=== PATIENT | male | born 1965 | race American Indian/Alaskan Native ===

== ENCOUNTER 2016-10-23 08:13 | Inpatient (IN) | payer OTHER ==
--- NOTE | 2016-10-23 09:07 | XRay Report ---
ROUTINE CHEST, TWO VIEWS: HISTORY: Shortness of breath. The trachea, heart, mediastinal contour, lung rose and bony thorax are unremarkable. IMPRESSION: Unremarkable chest x-ray.
[2016-10-23 09:09] LABS: BUN/Creatinine Ratio 11.25; Blood Urea Nitrogen 9 mg/dL (9-20); Calcium 7.6 mg/dL (8.4-10.2); Carbon Dioxide 14 mmol/L (22-30); Glucose 146 mg/dL (75-100)
[2016-10-23 09:10] LABS: Chloride 87.5 mmol/L (98-107); Sodium 124 mmol/L (137-145)
[2016-10-23 09:16] LABS: Hematocrit 33.3 % (35.5-45.6); Hemoglobin 11.8 gm/dl (11.8-15.2); Mean Corpuscular HGB Conc 35 % (32-34); Mean Corpuscular Hemoglobin 32 pg (28-32); Mean Corpuscular Volume 91 fl (84-94); Platelet Count 156 K/mm3 (140-440); Red Blood Count 3.66 M/mm3 (3.65-5.03); Red Cell Distribution Width 19.1 % (13.2-15.2); White Blood Count 10.6 K/mm3 (4.5-11.0)
[2016-10-23 09:32] LABS: Albumin 2.6 g/dL (3.9-5); Albumin/Globulin Ratio 0.7 %; Bilirubin,Indirect 2.7 mg/dL; Bilirubin,Total 7.7 mg/dL (0.1-1.2); Total Protein 6.2 g/dL (6.3-8.2)
[2016-10-23] MEDS ORDERED: VALIUM IV ONE (09:34)
--- NOTE | 2016-10-23 09:36 | Emergency Department Report ---
ED General Adult HPI - General Chief complaint: Chest Pain Stated complaint: CHEST PAIN/SOB/NOSE BLEEDS/RECTAL BLEEDING Time Seen by Provider: 10/23/16 09:18 Source: patient, RN notes reviewed Mode of arrival: Ambulatory Limitations: No Limitations - History of Present Illness Initial comments: This is a 51-year-old male. He is previously unknown to me. He presents to the ER with a complaint of general weakness, chest pain, shortness of breath, feeling tremulous and shaky, resolved nasal bleeding, brown stool mixed with bright red blood. Admits to a few episodes of nausea and vomiting. The patient used to consume multiple beers a day. He reports recently trying to discontinue alcohol consumption. He is not homicidal. He is not suicidal. The chest pain as central, and does not radiate to the back, arms or neck. No recent trips. No recent hospital admissions. No cocaine use. No hematemesis. -: Gradual Location: chest Quality: aching Consistency: intermittent Improves with: none Worsens with: none Associated Symptoms: chest pain, diaphoresis, loss of appetite, malaise, nausea/ vomiting, shortness of breath, weakness - Related Data Home Medications Medication Instructions Recorded Confirmed Last Taken No Known Home Medications [No 10/23/16 10/23/16 Unknown Reported Home Medications] Allergies Allergy/AdvReac Type Severity Reaction Status Date / Time aspirin AdvReac Shortness Verified 02/24/14 19:19 of Breath ED Review of Systems ROS: Stated complaint: CHEST PAIN/SOB/NOSE BLEEDS/RECTAL BLEEDING Other details as noted in HPI Constitutional: malaise, weakness ENT: epistaxis Respiratory: shortness of breath Cardiovascular: chest pain Gastrointestinal: hematochezia Genitourinary: denies: urgency, dysuria Musculoskeletal: arthralgia, myalgia Skin: denies: lesions Neurological: weakness Psychiatric: anxiety. denies: homicidal thoughts, suicidal thoughts ED Past Medical Hx - Past Medical History Hx Hypertension: Yes - Surgical History Additional Surgical History: hernia and kidney repair - Social History Smoking Status: Former Smoker Substance Use Type: None - Medications Home Medications: Home Medications Medication Instructions Recorded Confirmed Last Taken Type No Known Home Medications [No 10/23/16 10/23/16 Unknown History Reported Home Medications] ED Physical Exam - General Limitations: No Limitations General appearance: alert, in distress, other (patient has tongue fasciculations , and has general tremulousness) - Head Head exam: Present: atraumatic, normocephalic - Eye Eye exam: Present: normal appearance, EOMI, scleral icterus. Absent: other - ENT ENT exam: Present: normal exam, normal orophraynx, mucous membranes dry, normal external ear exam - Neck Neck exam: Present: normal inspection, full ROM. Absent: tenderness, meningismus - Respiratory Respiratory exam: Present: normal lung sounds bilaterally. Absent: respiratory distress, wheezes, rales, decreased breath sounds - Cardiovascular Cardiovascular Exam: Present: normal rhythm, tachycardia, normal heart sounds. Absent: systolic murmur, diastolic murmur, rubs, gallop - GI/Abdominal GI/Abdominal exam: Present: soft, normal bowel sounds. Absent: distended, tenderness, guarding, rebound, rigid, pulsatile mass - Rectal Rectal exam: Present: normal inspection, normal rectal tone, heme (+) stool, other (Brown stool that is trace guaiac positive. During the rectal examination , I escorted by ER nurse Jacquelin Eduardo) - Extremities Exam Extremities exam: Present: normal inspection, full ROM, normal capillary refill. Absent: tenderness, pedal edema, joint swelling, calf tenderness - Back Exam Back exam: Present: normal inspection, full ROM. Absent: tenderness, CVA tenderness (R), CVA tenderness (L), muscle spasm, paraspinal tenderness, vertebral tenderness - Neurological Exam Neurological exam: Present: alert, oriented X3, other (Extraocular movements intact. Tongue midline. No facial droop. Facial sensation intact to light touch in the V1, V2, V3 distribution bilaterally. 5 and 5 strength in 4 extremities.. Sensation is intact to light touch in 4 extremities.). Absent: motor sensory deficit - Psychiatric Psychiatric exam: Present: anxious. Absent: homicidal ideation, suicidal ideation - Skin Skin exam: Present: warm, dry, intact, normal color. Absent: rash ED Course Vital Signs 10/23/16 10/23/16 10/23/16 08:24 09:08 09:30 Temperature 98.5 F Pulse Rate 134 H 126 H Respiratory 26 H 21 Rate Blood Pressure 156/101 153/101 O2 Sat by Pulse 98 97 Oximetry 10/23/16 10/23/16 10/23/16 09:32 10:00 10:30 Temperature 99.9 F H Pulse Rate 127 H 124 H Respiratory 24 24 Rate Blood Pressure 136/94 144/83 O2 Sat by Pulse 96 97 Oximetry - Reevaluation(s) Reevaluation #1: 10/23/16 11:02 Differential diagnosis: Dehydration, starvation and alcoholic ketosis, electrolyte imbalance, acute coronary syndrome, pneumonia, pulmonary embolus, malignancy/cancer, beer podomania Assessment and plan: 51-year-old male who used to consume alcohol daily, recently quit cold turkey, with complex presentation. He is hyponatremic, hypokalemia, hypomagnesemia, appears to have jaundice, and may have an obstructive hepatic pattern. Malignancy is a possibility. Given painless jaundice, complaint of chest pain and shortness of breath, I find the patient to be moderate risk for pulmonary embolus, and I don't believe he can be adequately risk stratified by d-dimer. Given his history of rectal bleeding, I will withhold empiric anticoagulation pending results of a CT scan of the chest. We will also obtain CT scan of the abdomen and pelvis to better delineate his anatomy. He is quite tachycardic and tremulous, this is most likely part of the withdrawal syndrome. He was given D5 half-normal, elevated lactic acid level was then appreciated, this may be secondary to inadequate lactic acid clearance from hepatic involvement, versus starvation ketosis. He will be bolused with fluids aggressively. He was given Valium with some improvement in his symptoms, he is not homicidal or suicidal, and he does not have access to guns or firearms, he has a GCS of 15 , with an NIH score of 0. The patient will remain in the ER pending results of the CT scans. Case is discussed with the Hospital physician, Dr. Callejas, who accepted the patient to his service. ED Medical Decision Making - Lab Data Result diagrams: 10/23/16 08:40 10/23/16 08:40 Vital Signs 10/23/16 10/23/16 08:24 09:32 Temperature 98.5 F 99.9 F H Pulse Rate 134 H Respiratory 26 H Rate Blood Pressure 156/101 O2 Sat by Pulse 98 Oximetry Lab Results 10/23/16 10/23/16 10/23/16 Range/Units 08:40 08:40 08:40 WBC 10.6 (4.5-11.0) K/mm3 RBC 3.66 (3.65-5.03) M/mm3 Hgb 11.8 (11.8-15.2) gm/dl Hct 33.3 L (35.5-45.6) % MCV 91 (84-94) fl MCH 32 (28-32) pg MCHC 35 H (32-34) % RDW 19.1 H (13.2-15.2) % Plt Count 156 (140-440) K/mm3 Lymph % (Auto) Squad Leader Jerome % (Auto) Squad Leader Lymph # Squad Leader Add Manual Diff Complete Total Counted 100 Seg Neutrophils % Squad Leader Seg Neuts % (Manual) 82.0 H (40.0-70.0) % Band Neutrophils % 1.0 % Lymphocytes % (Manual) 13.0 L (13.4-35.0) % Reactive Lymphs % (Man) 0 % Monocytes % (Manual) 3.0 (0.0-7.3) % Eosinophils % (Manual) 0 (0.0-4.3) % Basophils % (Manual) 0 (0.0-1.8) % Metamyelocytes % 0 % Myelocytes % 1.0 % Promyelocytes % 0 % Blast Cells % 0 % Nucleated RBC % 1.0 H (0.0-0.9) % Seg Neutrophils # Man 8.7 H (1.8-7.7) K/mm3 Band Neutrophils # 0.1 K/mm3 Lymphocytes # (Manual) 1.4 (1.2-5.4) K/mm3 Abs React Lymphs (Man) 0.0 K/mm3 Monocytes # (Manual) 0.3 (0.0-0.8) K/mm3 Eosinophils # (Manual) 0.0 (0.0-0.4) K/mm3 Basophils # (Manual) 0.0 (0.0-0.1) K/mm3 Metamyelocytes # 0.0 K/mm3 Myelocytes # 0.1 K/mm3 Promyelocytes # 0.0 K/mm3 Blast Cells # 0.0 K/mm3 WBC Morphology Not Reportable Hypersegmented Neuts Not Reportable Hyposegmented Neuts Not Reportable Hypogranular Neuts Not Reportable Smudge Cells Not Reportable Toxic Granulation Not Reportable Toxic Vacuolation Not Reportable Dohle Bodies Not Reportable Pelger-Huet Anomaly Not Reportable Jacob Rods Not Reportable Platelet Estimate Appears normal Clumped Platelets Not Reportable Plt Clumps, EDTA Not Reportable Large Platelets Not Reportable Giant Platelets Not Reportable Platelet Satelliting Not Reportable Plt Morphology Comment Not Reportable RBC Morphology Not Reportable Dimorphic RBCs Not Reportable Polychromasia Few Hypochromasia Not Reportable Poikilocytosis 1+ Anisocytosis 2+ Microcytosis Not Reportable Macrocytosis Few Spherocytes Not Reportable Pappenheimer Bodies Not Reportable Sickle Cells Not Reportable Target Cells Not Reportable Tear Drop Cells Not Reportable Ovalocytes Not Reportable Helmet Cells Not Reportable Mantilla-Brinckerhoff Bodies Not Reportable Barnhart Rings Not Reportable [place] Cells Not Reportable Bite Cells Not Reportable Crenated Cell Not Reportable Elliptocytes Not Reportable Acanthocytes (Spur) Not Reportable Rouleaux Not Reportable Hemoglobin C Crystals Not Reportable Schistocytes Not Reportable Malaria parasites Not Reportable Calos Bodies Not Reportable Hem Pathologist Commnt No PT (12.2-14.9) Sec. INR (0.87-1.13) APTT (24.2-36.6) Sec. D-Dimer (0-234) ng/mlDDU VBG pH (7.320-7.420) Sodium 124 L (137-145) mmol/L Potassium 3.3 L (3.6-5.0) mmol/L Chloride 87.5 L (98-107) mmol/L Carbon Dioxide 14 L (22-30) mmol/L Anion Gap 26 mmol/L BUN 9 (9-20) mg/dL Creatinine 0.8 (0.8-1.5) mg/dL Estimated GFR > 60 ml/min BUN/Creatinine Ratio 11.25 % Glucose 146 H (75-100) mg/dL POC Glucose (70-105) Lactic Acid (0.7-2.0) mmol/L Calcium 7.6 L (8.4-10.2) mg/dL Magnesium (1.7-2.3) mg/dL Total Bilirubin 7.7 H (0.1-1.2) mg/dL Direct Bilirubin 5.0 H (0-0.2) mg/dL Indirect Bilirubin 2.7 mg/dL AST 423 H (5-40) units/L ALT 144 H (7-56) units/L Alkaline Phosphatase 280 H (35-129) units/L Total Creatine Kinase (55-170) units/L Troponin T < 0.010 (0.00-0.029) ng/mL Total Protein 6.2 L (6.3-8.2) g/dL Albumin 2.6 L (3.9-5) g/dL Albumin/Globulin Ratio 0.7 % Lipase (13-60) units/L 10/23/16 10/23/16 10/23/16 Range/Units 09:23 09:50 09:50 WBC (4.5-11.0) K/mm3 RBC (3.65-5.03) M/mm3 Hgb (11.8-15.2) gm/dl Hct (35.5-45.6) % MCV (84-94) fl MCH (28-32) pg MCHC (32-34) % RDW (13.2-15.2) % Plt Count (140-440) K/mm3 Lymph % (Auto) Jerome % (Auto) Lymph # Add Manual Diff Total Counted Seg Neutrophils % Seg Neuts % (Manual) (40.0-70.0) % Band Neutrophils % % Lymphocytes % (Manual) (13.4-35.0) % Reactive Lymphs % (Man) % Monocytes % (Manual) (0.0-7.3) % Eosinophils % (Manual) (0.0-4.3) % Basophils % (Manual) (0.0-1.8) % Metamyelocytes % % Myelocytes % % Promyelocytes % % Blast Cells % % Nucleated RBC % (0.0-0.9) % Seg Neutrophils # Man (1.8-7.7) K/mm3 Band Neutrophils # K/mm3 Lymphocytes # (Manual) (1.2-5.4) K/mm3 Abs React Lymphs (Man) K/mm3 Monocytes # (Manual) (0.0-0.8) K/mm3 Eosinophils # (Manual) (0.0-0.4) K/mm3 Basophils # (Manual) (0.0-0.1) K/mm3 Metamyelocytes # K/mm3 Myelocytes # K/mm3 Promyelocytes # K/mm3 Blast Cells # K/mm3 WBC Morphology Hypersegmented Neuts Hyposegmented Neuts Hypogranular Neuts Smudge Cells Toxic Granulation Toxic Vacuolation Dohle Bodies Pelger-Huet Anomaly Jacob Rods Platelet Estimate Clumped Platelets Plt Clumps, EDTA Large Platelets Giant Platelets Platelet Satelliting Plt Morphology Comment RBC Morphology Dimorphic RBCs Polychromasia Hypochromasia Poikilocytosis Anisocytosis Microcytosis Macrocytosis Spherocytes Pappenheimer Bodies Sickle Cells Target Cells Tear Drop Cells Ovalocytes Helmet Cells Mantilla-Brinckerhoff Bodies Barnhart Rings [place] Cells Bite Cells Crenated Cell Elliptocytes Acanthocytes (Spur) Rouleaux Hemoglobin C Crystals Schistocytes Malaria parasites Calos Bodies Hem Pathologist Commnt PT 14.9 (12.2-14.9) Sec. INR 1.18 H (0.87-1.13) APTT 38.7 H (24.2-36.6) Sec. D-Dimer 540.22 H (0-234) ng/mlDDU VBG pH (7.320-7.420) Sodium (137-145) mmol/L Potassium (3.6-5.0) mmol/L Chloride (98-107) mmol/L Carbon Dioxide (22-30) mmol/L Anion Gap mmol/L BUN (9-20) mg/dL Creatinine (0.8-1.5) mg/dL Estimated GFR ml/min BUN/Creatinine Ratio % Glucose (75-100) mg/dL POC Glucose 154 H (70-105) Lactic Acid (0.7-2.0) mmol/L Calcium (8.4-10.2) mg/dL Magnesium (1.7-2.3) mg/dL Total Bilirubin (0.1-1.2) mg/dL Direct Bilirubin (0-0.2) mg/dL Indirect Bilirubin mg/dL AST (5-40) units/L ALT (7-56) units/L Alkaline Phosphatase (35-129) units/L Total Creatine Kinase (55-170) units/L Troponin T < 0.010 (0.00-0.029) ng/mL Total Protein (6.3-8.2) g/dL Albumin (3.9-5) g/dL Albumin/Globulin Ratio % Lipase (13-60) units/L 10/23/16 10/23/16 10/23/16 Range/Units 09:50 09:50 09:50 WBC (4.5-11.0) K/mm3 RBC (3.65-5.03) M/mm3 Hgb (11.8-15.2) gm/dl Hct (35.5-45.6) % MCV (84-94) fl MCH (28-32) pg MCHC (32-34) % RDW (13.2-15.2) % Plt Count (140-440) K/mm3 Lymph % (Auto) Jerome % (Auto) Lymph # Add Manual Diff Total Counted Seg Neutrophils % Seg Neuts % (Manual) (40.0-70.0) % Band Neutrophils % % Lymphocytes % (Manual) (13.4-35.0) % Reactive Lymphs % (Man) % Monocytes % (Manual) (0.0-7.3) % Eosinophils % (Manual) (0.0-4.3) % Basophils % (Manual) (0.0-1.8) % Metamyelocytes % % Myelocytes % % Promyelocytes % % Blast Cells % % Nucleated RBC % (0.0-0.9) % Seg Neutrophils # Man (1.8-7.7) K/mm3 Band Neutrophils # K/mm3 Lymphocytes # (Manual) (1.2-5.4) K/mm3 Abs React Lymphs (Man) K/mm3 Monocytes # (Manual) (0.0-0.8) K/mm3 Eosinophils # (Manual) (0.0-0.4) K/mm3 Basophils # (Manual) (0.0-0.1) K/mm3 Metamyelocytes # K/mm3 Myelocytes # K/mm3 Promyelocytes # K/mm3 Blast Cells # K/mm3 WBC Morphology Hypersegmented Neuts Hyposegmented Neuts Hypogranular Neuts Smudge Cells Toxic Granulation Toxic Vacuolation Dohle Bodies Pelger-Huet Anomaly Jacob Rods Platelet Estimate Clumped Platelets Plt Clumps, EDTA Large Platelets Giant Platelets Platelet Satelliting Plt Morphology Comment RBC Morphology Dimorphic RBCs Polychromasia Hypochromasia Poikilocytosis Anisocytosis Microcytosis Macrocytosis Spherocytes Pappenheimer Bodies Sickle Cells Target Cells Tear Drop Cells Ovalocytes Helmet Cells Mantilla-Brinckerhoff Bodies Barnhart Rings Mandy Cells Bite Cells Crenated Cell Elliptocytes Acanthocytes (Spur) Rouleaux Hemoglobin C Crystals Schistocytes Malaria parasites Calos Bodies Hem Pathologist Commnt PT (12.2-14.9) Sec. INR (0.87-1.13) APTT (24.2-36.6) Sec. D-Dimer (0-234) ng/mlDDU VBG pH 7.429 H (7.320-7.420) Sodium (137-145) mmol/L Potassium (3.6-5.0) mmol/L Chloride (98-107) mmol/L Carbon Dioxide (22-30) mmol/L Anion Gap mmol/L BUN (9-20) mg/dL Creatinine (0.8-1.5) mg/dL Estimated GFR ml/min BUN/Creatinine Ratio % Glucose (75-100) mg/dL POC Glucose (70-105) Lactic Acid 6.6 H* (0.7-2.0) mmol/L Calcium (8.4-10.2) mg/dL Magnesium 1.4 L (1.7-2.3) mg/dL Total Bilirubin (0.1-1.2) mg/dL Direct Bilirubin (0-0.2) mg/dL Indirect Bilirubin mg/dL AST (5-40) units/L ALT (7-56) units/L Alkaline Phosphatase (35-129) units/L Total Creatine Kinase (55-170) units/L Troponin T (0.00-0.029) ng/mL Total Protein (6.3-8.2) g/dL Albumin (3.9-5) g/dL Albumin/Globulin Ratio % Lipase 57 (13-60) units/L // Range/Units 09:50 WBC (4.5-11.0) K/mm3 RBC (3.65-5.03) M/mm3 Hgb (11.8-15.2) gm/dl Hct (35.5-45.6) % MCV (84-94) fl MCH (28-32) pg MCHC (32-34) % RDW (13.2-15.2) % Plt Count (140-440) K/mm3 Lymph % (Auto) Jerome % (Auto) Lymph # Add Manual Diff Total Counted Seg Neutrophils % Seg Neuts % (Manual) (40.0-70.0) % Band Neutrophils % % Lymphocytes % (Manual) (13.4-35.0) % Reactive Lymphs % (Man) % Monocytes % (Manual) (0.0-7.3) % Eosinophils % (Manual) (0.0-4.3) % Basophils % (Manual) (0.0-1.8) % Metamyelocytes % % Myelocytes % % Promyelocytes % % Blast Cells % % Nucleated RBC % (0.0-0.9) % Seg Neutrophils # Man (1.8-7.7) K/mm3 Band Neutrophils # K/mm3 Lymphocytes # (Manual) (1.2-5.4) K/mm3 Abs React Lymphs (Man) K/mm3 Monocytes # (Manual) (0.0-0.8) K/mm3 Eosinophils # (Manual) (0.0-0.4) K/mm3 Basophils # (Manual) (0.0-0.1) K/mm3 Metamyelocytes # K/mm3 Myelocytes # K/mm3 Promyelocytes # K/mm3 Blast Cells # K/mm3 WBC Morphology Hypersegmented Neuts Hyposegmented Neuts Hypogranular Neuts Smudge Cells Toxic Granulation Toxic Vacuolation Dohle Bodies Pelger-Huet Anomaly Jacob Rods Platelet Estimate Clumped Platelets Plt Clumps, EDTA Large Platelets Giant Platelets Platelet Satelliting Plt Morphology Comment RBC Morphology Dimorphic RBCs Polychromasia Hypochromasia Poikilocytosis Anisocytosis Microcytosis Macrocytosis Spherocytes Pappenheimer Bodies Sickle Cells Target Cells Tear Drop Cells Ovalocytes Helmet Cells Amntilla-Brinckerhoff Bodies Barnhart Rings Mandy Cells Bite Cells Crenated Cell Elliptocytes Acanthocytes (Spur) Rouleaux Hemoglobin C Crystals Schistocytes Malaria parasites Calos Bodies Hem Pathologist Commnt PT (12.2-14.9) Sec. INR (0.87-1.13) APTT (24.2-36.6) Sec. D-Dimer (0-234) ng/mlDDU VBG pH (7.320-7.420) Sodium (137-145) mmol/L Potassium (3.6-5.0) mmol/L Chloride (98-107) mmol/L Carbon Dioxide (22-30) mmol/L Anion Gap mmol/L BUN (9-20) mg/dL Creatinine (0.8-1.5) mg/dL Estimated GFR ml/min BUN/Creatinine Ratio % Glucose (75-100) mg/dL POC Glucose (70-105) Lactic Acid (0.7-2.0) mmol/L Calcium (8.4-10.2) mg/dL Magnesium (1.7-2.3) mg/dL Total Bilirubin (0.1-1.2) mg/dL Direct Bilirubin (0-0.2) mg/dL Indirect Bilirubin mg/dL AST (5-40) units/L ALT (7-56) units/L Alkaline Phosphatase (35-129) units/L Total Creatine Kinase 990 H (55-170) units/L Troponin T (0.00-0.029) ng/mL Total Protein (6.3-8.2) g/dL Albumin (3.9-5) g/dL Albumin/Globulin Ratio % Lipase (13-60) units/L - EKG Data -: EKG Interpreted by Me Rate: tachycardia - EKG Data When compared to previous EKG there are: no significant change 10/23/16 11:05 Sinus tachycardia, 133 bpm, left axis deviation, QTC 431 ms, not consistent with STEMI, left axis deviation appears new when Compared to prior EKG. - Radiology Data Radiology results: report reviewed, image reviewed interpreted by me: xr chest negative CT scan of the chest negative. CT scan of the abdomen and pelvis shows liver. Critical care attestation.: If time is entered above; I have spent that time in minutes in the direct care of this critically ill patient, excluding procedure time. ED Disposition Clinical Impression: Alcohol withdrawal, Hyponatremia, Hypomagnesemia, Chest pain Disposition: OP ADMITTED IP TO THIS HOSP Is pt being admited?: Yes Condition: Fair
[2016-10-23 09:51] LABS: Basophils % (Manual) 0 % (0.0-1.8); Blastocytes % (Manual) 0 %; Eosinophils % (Manual) 0 % (0.0-4.3)
[2016-10-23 09:52] LABS: Anion Gap 26 mmol/L; Anisocytosis 2+; Diff Status Complete; Macrocytosis Few; Poikilocytosis 1+; Polychromasia Few; Potassium 3.3 mmol/L (3.6-5.0)
[2016-10-23] MEDS ORDERED: D5/0.45NS 1,000 ML IV SCH (10:00)
[2016-10-23] MEDS ORDERED: NACL ONE (10:16)
[2016-10-23 10:34] LABS: INR 1.18 (0.87-1.13)
[2016-10-23 10:35] LABS: Partial Thromboplastin Time 38.7 Sec. (24.2-36.6)
--- NOTE | 2016-10-23 10:45 | History and Physical Report ---
History of Present Illness Date of examination: 10/23/16 Date of admission: 10/23/16 Chief complaint: N/V, BRBPR, chest pain History of present illness: 51-year-old male presents to the emergency department with complaints of left- sided chest pain described as a tightness. Patient also reports associated shortness of breath, nausea and vomiting. Patient states that his vomiting has occurred a few times of gastric contents. He denies any diaphoresis. Patient also reports rectal bleeding that initially was bright red blood per rectum and transition to maroon stools. Patient reports consuming multiple beers daily. He reports recently trying to discontinue alcohol consumption. Patient denies any hematemesis. No fever chills. No cough or cold like symptoms. Patient reports a history of hypertension that was diagnosed approximately 2-3 years ago for which he does not take medications for due to insurance and lack of funds. Past History Past Medical History: hypertension Past Surgical History: No surgical history Social history: alcohol abuse Family history: no significant family history Medications and Allergies Allergies Allergy/AdvReac Type Severity Reaction Status Date / Time aspirin AdvReac Shortness Verified 02/24/14 19:19 of Breath Home Medications Medication Instructions Recorded Confirmed Last Taken Type No Known Home Medications [No 10/23/16 10/23/16 Unknown History Reported Home Medications] Active Meds: Active Medications Dextrose/Sodium Chloride (D5/0.45ns) 1,000 mls @ 0 mls/hr IV DIRECT DONTRELL PRN Reason: Wide Open Last Admin: 10/23/16 10:00 Dose: 999 mls/hr Review of Systems All systems: negative Exam - Constitutional Vitals: Temp Pulse Resp BP Pulse Ox 99.9 F H 134 H 26 H 156/101 98 10/23/16 09:32 10/23/16 08:24 10/23/16 08:24 10/23/16 08:24 10/23/16 08:24 General appearance: Present: no acute distress, well-nourished - EENT Eyes: Present: PERRL ENT: hearing intact, clear oral mucosa - Neck Neck: Present: supple, normal ROM - Respiratory Respiratory effort: normal Respiratory: bilateral: CTA - Cardiovascular Heart Sounds: Present: S1 & S2. Absent: rub, click - Extremities Extremities: pulses symmetrical, No edema Peripheral Pulses: within normal limits - Abdominal General gastrointestinal: Present: soft, non-tender, distended, normal bowel sounds Male genitourinary: Present: normal - Integumentary Integumentary: Present: clear, warm, dry - Musculoskeletal Musculoskeletal: gait normal, strength equal bilaterally - Psychiatric Psychiatric: appropriate mood/affect, intact judgment & insight - Neurologic Neurologic: CNII-XII intact, moves all extremities Results - Labs CBC & Chem 7: 10/23/16 08:40 10/23/16 08:40 Labs: Laboratory Last Values WBC 10.6 K/mm3 (4.5-11.0) 10/23/16 08:40 RBC 3.66 M/mm3 (3.65-5.03) 10/23/16 08:40 Hgb 11.8 gm/dl (11.8-15.2) 10/23/16 08:40 Hct 33.3 % (35.5-45.6) L 10/23/16 08:40 MCV 91 fl (84-94) 10/23/16 08:40 MCH 32 pg (28-32) 10/23/16 08:40 MCHC 35 % (32-34) H 10/23/16 08:40 RDW 19.1 % (13.2-15.2) H 10/23/16 08:40 Plt Count 156 K/mm3 (140-440) 10/23/16 08:40 Lymph % (Auto) Plant Clerk 10/23/16 08:40 [place] % (Auto) Plant Clerk 10/23/16 08:40 Lymph # Plant Clerk 10/23/16 08:40 Add Manual Diff Complete 10/23/16 08:40 Total Counted 100 10/23/16 08:40 Seg Neutrophils % Plant Clerk 10/23/16 08:40 Seg Neuts % (Manual) 82.0 % (40.0-70.0) H 10/23/16 08:40 Band Neutrophils % 1.0 % 10/23/16 08:40 Lymphocytes % (Manual) 13.0 % (13.4-35.0) L 10/23/16 08:40 Reactive Lymphs % (Man) 0 % 10/23/16 08:40 Monocytes % (Manual) 3.0 % (0.0-7.3) 10/23/16 08:40 Eosinophils % (Manual) 0 % (0.0-4.3) 10/23/16 08:40 Basophils % (Manual) 0 % (0.0-1.8) 10/23/16 08:40 Metamyelocytes % 0 % 10/23/16 08:40 Myelocytes % 1.0 % 10/23/16 08:40 Promyelocytes % 0 % 10/23/16 08:40 Blast Cells % 0 % 10/23/16 08:40 Nucleated RBC % 1.0 % (0.0-0.9) H 10/23/16 08:40 Seg Neutrophils # Man 8.7 K/mm3 (1.8-7.7) H 10/23/16 08:40 Band Neutrophils # 0.1 K/mm3 10/23/16 08:40 Lymphocytes # (Manual) 1.4 K/mm3 (1.2-5.4) 10/23/16 08:40 Abs React Lymphs (Man) 0.0 K/mm3 10/23/16 08:40 Monocytes # (Manual) 0.3 K/mm3 (0.0-0.8) 10/23/16 08:40 Eosinophils # (Manual) 0.0 K/mm3 (0.0-0.4) 10/23/16 08:40 Basophils # (Manual) 0.0 K/mm3 (0.0-0.1) 10/23/16 08:40 Metamyelocytes # 0.0 K/mm3 10/23/16 08:40 Myelocytes # 0.1 K/mm3 10/23/16 08:40 Promyelocytes # 0.0 K/mm3 10/23/16 08:40 Blast Cells # 0.0 K/mm3 10/23/16 08:40 WBC Morphology Not Reportable 10/23/16 08:40 Hypersegmented Neuts Not Reportable 10/23/16 08:40 Hyposegmented Neuts Not Reportable 10/23/16 08:40 Hypogranular Neuts Not Reportable 10/23/16 08:40 Smudge Cells Not Reportable 10/23/16 08:40 Toxic Granulation Not Reportable 10/23/16 08:40 Toxic Vacuolation Not Reportable 10/23/16 08:40 Dohle Bodies Not Reportable 10/23/16 08:40 Pelger-Huet Anomaly Not Reportable 10/23/16 08:40 Jacob Rods Not Reportable 10/23/16 08:40 Platelet Estimate Appears normal 10/23/16 08:40 Clumped Platelets Not Reportable 10/23/16 08:40 Plt Clumps, EDTA Not Reportable 10/23/16 08:40 Large Platelets Not Reportable 10/23/16 08:40 Giant Platelets Not Reportable 10/23/16 08:40 Platelet Satelliting Not Reportable 10/23/16 08:40 Plt Morphology Comment Not Reportable 10/23/16 08:40 RBC Morphology Not Reportable 10/23/16 08:40 Dimorphic RBCs Not Reportable 10/23/16 08:40 Polychromasia Few 10/23/16 08:40 Hypochromasia Not Reportable 10/23/16 08:40 Poikilocytosis 1+ 10/23/16 08:40 Anisocytosis 2+ 10/23/16 08:40 Microcytosis Not Reportable 10/23/16 08:40 Macrocytosis Few 10/23/16 08:40 Spherocytes Not Reportable 10/23/16 08:40 Pappenheimer Bodies Not Reportable 10/23/16 08:40 Sickle Cells Not Reportable 10/23/16 08:40 Target Cells Not Reportable 10/23/16 08:40 Tear Drop Cells Not Reportable 10/23/16 08:40 Ovalocytes Not Reportable 10/23/16 08:40 Helmet Cells Not Reportable 10/23/16 08:40 Mant[place] Bodies Not Reportable 10/23/16 08:40 [place] Rings Not Reportable 10/23/16 08:40 Mandy Cells Not Reportable 10/23/16 08:40 Bite Cells Not Reportable 10/23/16 08:40 Crenated Cell Not Reportable 10/23/16 08:40 Elliptocytes Not Reportable 10/23/16 08:40 Acanthocytes (Spur) Not Reportable 10/23/16 08:40 Rouleaux Not Reportable 10/23/16 08:40 Hemoglobin C Crystals Not Reportable 10/23/16 08:40 Schistocytes Not Reportable 10/23/16 08:40 Malaria parasites Not Reportable 10/23/16 08:40 Calos Bodies Not Reportable 10/23/16 08:40 Hem Pathologist Commnt No 10/23/16 08:40 PT 14.9 Sec. (12.2-14.9) 10/23/16 09:50 INR 1.18 (0.87-1.13) H 10/23/16 09:50 APTT 38.7 Sec. (24.2-36.6) H 10/23/16 09:50 D-Dimer 540.22 ng/mlDDU (0-234) H 10/23/16 09:50 VBG pH 7.429 (7.320-7.420) H 10/23/16 09:50 Sodium 124 mmol/L (137-145) L 10/23/16 08:40 Potassium 3.3 mmol/L (3.6-5.0) L 10/23/16 08:40 Chloride 87.5 mmol/L (98-107) L 10/23/16 08:40 Carbon Dioxide 14 mmol/L (22-30) L 10/23/16 08:40 Anion Gap 26 mmol/L 10/23/16 08:40 BUN 9 mg/dL (9-20) 10/23/16 08:40 Creatinine 0.8 mg/dL (0.8-1.5) 10/23/16 08:40 Estimated GFR > 60 ml/min 10/23/16 08:40 BUN/Creatinine Ratio 11.25 % 10/23/16 08:40 Glucose 146 mg/dL (75-100) H 10/23/16 08:40 POC Glucose 154 (70-105) H 10/23/16 09:23 Calcium 7.6 mg/dL (8.4-10.2) L 10/23/16 08:40 Total Bilirubin 7.7 mg/dL (0.1-1.2) H 10/23/16 08:40 Direct Bilirubin 5.0 mg/dL (0-0.2) H 10/23/16 08:40 Indirect Bilirubin 2.7 mg/dL 10/23/16 08:40 AST 423 units/L (5-40) H 10/23/16 08:40 ALT 144 units/L (7-56) H 10/23/16 08:40 Alkaline Phosphatase 280 units/L (35-129) H 10/23/16 08:40 Troponin T < 0.010 ng/mL (0.00-0.029) 10/23/16 08:40 Total Protein 6.2 g/dL (6.3-8.2) L 10/23/16 08:40 Albumin 2.6 g/dL (3.9-5) L 10/23/16 08:40 Albumin/Globulin Ratio 0.7 % 10/23/16 08:40 Assessment and Plan Assessment and plan: 1. Chest pain. Patient will be placed on chest pain pathway and follow-up stress thallium in the morning. CT of the chest is pending. Continue to trend cardiac enzymes. 2. Hematochezia. GI consultation. Patient with no active bleeding. We'll start PPI. 3. EtOH abuse. Patient will be placed on CIWA protocol. Follow-up CT abdomen and pelvis. 4. Elevated LFTs. Again follow-up CT scan of the abdomen and pelvis. ? Liver disease/alcoholic hepatitis. 5. Elevated d-dimer. Follow CT of the chest.
[2016-10-23 10:50] LABS: Magnesium 1.4 mg/dL (1.7-2.3)
[2016-10-23] MEDS ORDERED: MAGNESIUM SULFATE 2GM/50ML 2 GM/50 ML BAG IV ONE (10:59)
[2016-10-23] MEDS ORDERED: K-DUR PO ONE (10:59)
[2016-10-23] MEDS ORDERED: NACL 0.9% 1000 ML 2,000 ML IV ONE (10:59)
[2016-10-23] MEDS ORDERED: SODIUM CHLORIDE FLUSH SYRINGE 10 ML IV PRN (11:21)
[2016-10-23] MEDS ORDERED: ATIVAN IV PRN ×3 (11:27→12:00)
--- NOTE | 2016-10-23 11:33 | Cat Scan Report ---
CT SCAN OF THE ABDOMEN AND PELVIS WITH CONTRAST: HISTORY: Painless jaundice. TECHNIQUE: Helical CT in 1.25mm intervals following IV contrast. Sagittal and coronal reconstructions. FINDINGS: There is moderate to severe diffuse fatty infiltration of the liver. This has increased in severity since 01/29/15 exam. There is no evidence for hepatic mass or surface nodularity. The biliary system is unremarkable in CT. The spleen and pancreas demonstrate a normal size and attenuation with no evidence of abnormal mass. The right kidney is atrophic. A 1.9 cm calculus is located in the right renal pelvis. Mild pelvocaliectasis in the right kidney is noted. The left kidney and collecting system are unremarkable. Normal bladder and prostate gland. The adrenal glands are normal. There is no intestinal obstruction or ascites. There are scattered diverticula throughout the colon but no evidence for diverticulitis or GI obstruction. Normal appendix. The abdominal aorta is normal. No abnormalities are identified within the retroperitoneum or mesentery. There is no evidence of peritoneal air or fluid. There is no evidence of any abnormal masses or fluid collections within the pelvis. No adenopathy is identified. IMPRESSION: Moderate to severe diffuse fatty infiltration throughout the liver which has increased since 2015. Unremarkable biliary system. Atrophic right kidney with staghorn calculus which mildly obstructs. Diverticulosis of the colon.
--- NOTE | 2016-10-23 11:41 | Cat Scan Report ---
CTA CHEST: History: Chest pain, shortness of breath Technique: Helical CT following IV contrast. Pulmonary embolus protocol. Sagittal and coronal reformatted images. Rotational MIP images. Findings: Contrast bolus is very limited. No large central pulmonary embolus is identified. Resolution within the distal, small pulmonary arteries is suboptimal. The thyroid gland, tracheobronchial tree, esophagus, heart, pericardium, mediastinal vessels, lung rose and bony thorax are unremarkable. Impression: Limited opacification of the pulmonary arteries but no large PE is identified. Otherwise, unremarkable CT of the chest.
[2016-10-23] MEDS ORDERED: TYLENOL PO PRN (12:00)
[2016-10-23] MEDS ORDERED: MILK OF MAGNESIA PO PRN (12:00)
[2016-10-23] MEDS ORDERED: DULCOLAX PR PRN (12:00)
[2016-10-23] MEDS ORDERED: ZOFRAN IV PRN (12:00)
--- NOTE | 2016-10-23 12:09 | Admit Criteria Form ---
Admission Criteria Documentation: HYPONATREMIA; HYPERNATREMIA; HYPOKALEMIA; HYPERKALEMIA; HYPOCALCEMIA; HYPERCALCEMIA Clinical Indications for Inpatient Care (Place 'X' for any and all applicable criteria): Ongoing inpatient care may be indicated for ANY ONE of the following [G](1)(2)(3 )(5): [X]I. Hyponatremia with ANY ONE of the following: [X]a) Sodium less than 130 mEq/L (mmol/L) (new) (6)(22) [ ]b) Sodium less than 135 mEq/L (mmol/L) with ANY ONE of the following: [ ]i) Severe medical etiology requiring inpatient management (eg, heart failure, hypovolemia) [ ]ii) Altered mental status [ ]iii) Seizures [ ]II. Hypernatremia with ANY ONE of the following: [ ]a) Sodium greater than 155 mEq/L (mmol/L) [ ]b) Sodium greater than 150 mEq/L (mmol/L) with ANY ONE of the following: [ ] i) Altered mental status [ ]ii) Seizures [ ]iii) Severe medical etiology (eg, hypovolemia, diabetes insipidus) [ ]iv) Severe weakness [ ]v) Severe medical etiology (eg, hemolysis, infection, drug overdose) [ ]III. Hypokalemia with ANY ONE of the following: [ ]a) Potassium less than 2.5 mEq/L (mmol/L) despite outpatient and emergency treatment [ ]b) Potassium less than 3.0 mEq/L (mmol/L) with ANY ONE of the following: [ ]i) Weakness [ ]ii) Cardiac abnormality (eg, arrhythmia, conduction disturbance) [ ]iii) Cardiac ischemia [ ]iv) Ileus [ ]v) Ongoing medical cause requiring inpatient management. ( e.g., acute renal wasting, SIADH) [ ]vi) Other severe symptoms [ ] IV. Hyperkalemia with ANY ONE of the following: [ ]a) Potassium greater than 6.5 mEq/L (mmol/L) [ ]b) Potassium greater than 5 mEq/L (mmol/L) with ANY ONE of the following: [ ]i) Severe ECG findings [H] [ ]ii) Acute worsening of renal failure (creatinine greater than 2.5 mg/dL (221 micromoles/L) or significant elevation for age and size) [ ] V. Hypocalcemia with ANY ONE of the following: [ ]a) Calcium less than 7 mg/dL (1.75 mmol/L) despite outpatient and emergency treatment(19) [ ]b) Calcium less than 8 mg/dL (2 mmol/L) with significant symptoms or findings; examples include: [ ]i) Cardiac abnormality (eg, arrhythmia or conduction disturbance) [ ]ii) Altered mental status [ ]iii) Seizures [ ]iv) Breathing difficulty [ ]v) Muscle spasms [ ]. Hypercalcemia with ANY ONE of the following: [ ]a) Calcium greater than 14 mg/dL (3.5 mmol/L) [ ]b) Calcium greater than 12 mg/dL (3 mmol/L) with ANY ONE of the following: [ ]i) Significant dehydration or hypovolemia as indicated by ANY ONE of the following(2): [ ]1. Clinically significant dehydration as indicated by ANY ONE of the following: [ ]A. Acute loss of weight from baseline (5% of body weight in adults, 9% in pediatric patients) [ ]B. Hemodynamic instability [ ]C. Acute renal failure [ ]D. Serum sodium greater than 150 mEq/L (mmol/L) [ ]2) Dehydration that is persistent indicated by ALL of the following: [ ]A. Oral rehydration therapy not tolerated or insufficient to adequately correct dehydration [ ]B. Appropriate intravenous treatment (eg, fluids ) does not readily correct dehydration ie, after 12 to 24 hours of treatment) [ ]ii) Significant symptoms or findings; examples include: [ ]1) Altered mental status [ ]2) Cardiac abnormality (eg, arrhythmia, conduction disturbance) [ ]3) Cardiac abnormality (eg, arrhythmia, conduction disturbance) The original [email or web address] content created by [employer] has been revised. The portions of the content which have been revised are identified through the use of italic text or in bold, and [facility] has neither reviewed nor approved the modified material. All other unmodified content is copyright [facility] [employer] Please see references footnoted in the original [facility] [employer] edition 2016 Admission Criteria Met: Yes
[2016-10-23 12:14] LABS: Creatine Kinase MB 5.8 ng/mL (0.0-4.0)
[2016-10-23 12:15] LABS: Creatine Kinase 913 units/L (55-170)
[2016-10-23 13:07] LABS: Bilirubin,Urine MOD (Negative); Blood,Urine LG (Negative); Ketones,Urine NEG (Negative); Leukocyte Esterase,Urine LG (Negative); Mucus,Urine 1+ /HPF; Nitrite,Urine NEG (Negative)
[2016-10-23 15:23] LABS: Creatine Kinase 930 units/L (55-170); Creatine Kinase MB 5.9 ng/mL (0.0-4.0)
[2016-10-23 17:16] LABS: Creatine Kinase MB 5.7 ng/mL (0.0-4.0)
[2016-10-23 17:17] LABS: Creatine Kinase 975 units/L (55-170)
[2016-10-23] MEDS: NACL 0.9% 1000 ML 1,000 ML IV SCH (19:39)
[2016-10-24] MEDS: NACL 0.9% 1000 ML 1,000 ML IV SCH (06:39)
[2016-10-24 07:11] LABS: Hematocrit 31.2 % (35.5-45.6); Hemoglobin 10.8 gm/dl (11.8-15.2); Mean Corpuscular HGB Conc 35 % (32-34); Mean Corpuscular Hemoglobin 31 pg (28-32); Mean Corpuscular Volume 91 fl (84-94); Platelet Count 121 K/mm3 (140-440); Red Blood Count 3.43 M/mm3 (3.65-5.03); Red Cell Distribution Width 19.6 % (13.2-15.2); White Blood Count 8.7 K/mm3 (4.5-11.0)
[2016-10-24 07:28] LABS: Albumin 2.5 g/dL (3.9-5); Bilirubin,Direct 5.5 mg/dL (0-0.2); Bilirubin,Indirect 2.5 mg/dL
[2016-10-24 07:36] LABS: Anion Gap 19 mmol/L; BUN/Creatinine Ratio 8.33; Blood Urea Nitrogen 5 mg/dL (9-20); Calcium 7.3 mg/dL (8.4-10.2); Carbon Dioxide 17 mmol/L (22-30); Chloride 93.5 mmol/L (98-107); Glucose 134 mg/dL (75-100); Potassium 3.3 mmol/L (3.6-5.0); Sodium 126 mmol/L (137-145)
[2016-10-24 08:13] LABS: Basophils % (Manual) 0 % (0.0-1.8); Blastocytes % (Manual) 0 %
[2016-10-24 08:18] LABS: Anisocytosis 2+; Diff Status Complete; Poikilocytosis 1+
[2016-10-24 08:49] LABS: Albumin/Globulin Ratio 0.7 %; Total Protein 5.9 g/dL (6.3-8.2)
--- NOTE | 2016-10-24 09:06 | Gastroenterology Consultation ---
History of Present Illness - Reason for Consult Consult date: 10/24/16 BRBPR, Elevated LFTS Requesting physician: MARILUZ BOWERS - History of Present Illness Mr. Haile is a 51 y/o male admitted with CP, SOB, and BRBPR. He notes that he recently stopped drinking 4 days ago. He typically drinks 2 beers and 1/2 pint of Vodka per day. He reports intermittent BRBPR over the last week. No prior colonoscopy. EGD several years ago for reflux. No daily NSAID use. No N/ V. No abdominal pain. He states this AM he noted SOB with exertion while walking his dog. LFTS elevated on admission. H/H stable. Past History Past Medical History: hypertension Past Surgical History: No surgical history Social history: alcohol abuse Family history: no significant family history Medications and Allergies Allergies Allergy/AdvReac Type Severity Reaction Status Date / Time aspirin AdvReac Shortness Verified 02/24/14 19:19 of Breath Home Medications Medication Instructions Recorded Confirmed Last Taken Type No Known Home Medications [No 10/23/16 10/23/16 Unknown History Reported Home Medications] Active Meds: Active Medications Acetaminophen (Tylenol) 650 mg PO Q4H PRN PRN Reason: Pain MILD(1-3)/Fever >100.5/ABEL Last Admin: 10/23/16 22:18 Dose: 650 mg Bisacodyl (Dulcolax) 10 mg MT QDAY PRN PRN Reason: Constipation unrelieved by MOM Sodium Chloride (Nacl 0.9% 1000 Ml) 1,000 mls @ 100 mls/hr IV DIRECT DONTRELL Last Admin: 10/24/16 06:39 Dose: 100 mls/hr Lorazepam (Ativan) 2 mg IV Q1H PRN PRN Reason: CIWA-Ar 8-15 Last Admin: 10/23/16 12:45 Dose: 2 mg Lorazepam (Ativan) 4 mg IV Q1H PRN PRN Reason: CIWA-Ar 16-25 Lorazepam (Ativan) 4 mg IV Q15MIN PRN PRN Reason: CIWA-Ar >25 Stop: 10/28/16 12:01 Magnesium Hydroxide (Milk Of Magnesia) 30 ml PO Q4H PRN PRN Reason: Constipation Ondansetron HCl (Zofran) 4 mg IV Q8H PRN PRN Reason: N/V unrelieved by Reglan Pantoprazole Sodium (Protonix) 40 mg IV DAILY DONTRELL Sodium Chloride (Sodium Chloride Flush Syringe 10 Ml) 10 ml IV PRN PRN PRN Reason: LINE FLUSH Review of Systems - Review of Systems All systems: negative Cardiovascular: chest pain, shortness of breath Gastrointestinal: BRBPR Exam - Constitutional Vital Signs: Temp Pulse Resp BP Pulse Ox 98.7 F 105 H 20 132/76 98 10/24/16 05:00 10/24/16 05:00 10/24/16 05:00 10/24/16 05:00 10/24/16 05:00 General appearance: no acute distress, well-nourished - EENT Eyes: EOM intact ENT: hearing intact - Neck Neck: supple - Respiratory Respiratory effort: normal Respiratory: bilateral: CTA - Cardiovascular Rhythm: regular Heart Sounds: Present: S1 & S2 Extremities: No edema - Gastrointestinal General gastrointestinal: Present: soft, non-tender, distended, normal bowel sounds - Integumentary Integumentary: Present: warm, dry - Neurologic Neurological: alert and oriented x3 - Psychiatric Psychiatric: appropriate mood/affect, cooperative - Labs CBC & Chem 7: 10/24/16 06:39 10/24/16 06:39 Lab Results: Laboratory Results - last 24 hr 10/23/16 10/23/16 10/23/16 11:37 11:37 12:37 WBC RBC Hgb Hct MCV MCH MCHC RDW Plt Count [place] % (Auto) Add Manual Diff Total Counted Seg Neutrophils % Seg Neuts % (Manual) Band Neutrophils % Lymphocytes % (Manual) Reactive Lymphs % (Man) Monocytes % (Manual) Eosinophils % (Manual) Basophils % (Manual) Metamyelocytes % Myelocytes % Promyelocytes % Blast Cells % Nucleated RBC % Seg Neutrophils # Man Band Neutrophils # Lymphocytes # (Manual) Abs React Lymphs (Man) Monocytes # (Manual) Eosinophils # (Manual) Basophils # (Manual) Metamyelocytes # Myelocytes # Promyelocytes # Blast Cells # WBC Morphology Hypersegmented Neuts Hyposegmented Neuts Hypogranular Neuts Smudge Cells Toxic Granulation Toxic Vacuolation Dohle Bodies Pelger-Huet Anomaly Jacob Rods Platelet Estimate Clumped Platelets Plt Clumps, EDTA Large Platelets Giant Platelets Platelet Satelliting Plt Morphology Comment RBC Morphology Dimorphic RBCs Polychromasia Hypochromasia Poikilocytosis Anisocytosis Microcytosis Macrocytosis Spherocytes Pappenheimer Bodies Sickle Cells Target Cells Tear Drop Cells Ovalocytes Helmet Cells Mantilla-[place] Bodies [place] Rings Mandy Cells Bite Cells Crenated Cell Elliptocytes Acanthocytes (Spur) Rouleaux Hemoglobin C Crystals Schistocytes Malaria parasites [place] Bodies Hem Pathologist Commnt Sodium Potassium Chloride Carbon Dioxide Anion Gap BUN Creatinine Estimated GFR BUN/Creatinine Ratio Glucose Calcium Total Bilirubin Direct Bilirubin Indirect Bilirubin AST ALT Alkaline Phosphatase Total Creatine Kinase 913 H CK-MB (CK-2) 5.8 H CK-MB (CK-2) Rel Index 0.6 Troponin T < 0.010 Total Protein Albumin Albumin/Globulin Ratio Lipase 56 Urine Color Hien Urine Turbidity Clear Urine pH 6.0 Ur Specific [place] 1.040 H Urine Protein 30 mg/dl Urine Glucose (UA) >=500 Urine Ketones Neg Urine Blood Lg Urine Nitrite Neg Urine Bilirubin Mod Urine Ictotest Positive Urine Urobilinogen 2.0 Ur Leukocyte Esterase Lg Urine WBC (Auto) 45.0 H Urine RBC (Auto) 24.0 U Epithel Cells (Auto) 1.0 Urine Mucus 1+ Urine Yeast (Budding) Few 10/23/16 10/23/16 10/24/16 14:37 16:36 06:39 WBC 8.7 RBC 3.43 L Hgb 10.8 L Hct 31.2 L MCV 91 MCH 31 MCHC 35 H RDW 19.6 H Plt Count 121 L [place] % (Auto) Emergency Department Add Manual Diff Complete Total Counted 100 Seg Neutrophils % Emergency Department Seg Neuts % (Manual) 74.0 H Band Neutrophils % 0 Lymphocytes % (Manual) 13.0 L Reactive Lymphs % (Man) 0 Monocytes % (Manual) 8.0 H Eosinophils % (Manual) 5.0 H Basophils % (Manual) 0 Metamyelocytes % 0 Myelocytes % 0 Promyelocytes % 0 Blast Cells % 0 Nucleated RBC % Not Reportable Seg Neutrophils # Man 6.4 Band Neutrophils # 0.0 Lymphocytes # (Manual) 1.1 L Abs React Lymphs (Man) 0.0 Monocytes # (Manual) 0.7 Eosinophils # (Manual) 0.4 Basophils # (Manual) 0.0 Metamyelocytes # 0.0 Myelocytes # 0.0 Promyelocytes # 0.0 Blast Cells # 0.0 WBC Morphology Not Reportable Hypersegmented Neuts Not Reportable Hyposegmented Neuts Not Reportable Hypogranular Neuts Not Reportable Smudge Cells Not Reportable Toxic Granulation Not Reportable Toxic Vacuolation Not Reportable Dohle Bodies Not Reportable Pelger-Huet Anomaly Not Reportable Jacob Rods Not Reportable Platelet Estimate Not Reportable Clumped Platelets Not Reportable Plt Clumps, EDTA Not Reportable Large Platelets Not Reportable Giant Platelets Not Reportable Platelet Satelliting Not Reportable Plt Morphology Comment Not Reportable RBC Morphology Not Reportable Dimorphic RBCs Not Reportable Polychromasia Not Reportable Hypochromasia Not Reportable Poikilocytosis 1+ Anisocytosis 2+ Microcytosis Not Reportable Macrocytosis Not Reportable Spherocytes Not Reportable Pappenheimer Bodies Not Reportable Sickle Cells Not Reportable Target Cells Not Reportable Tear Drop Cells Not Reportable Ovalocytes Not Reportable Helmet Cells Not Reportable Mantilla-[place] Bodies Not Reportable [place] Rings Not Reportable Mandy Cells Not Reportable Bite Cells Not Reportable Crenated Cell Not Reportable Elliptocytes Not Reportable Acanthocytes (Spur) Not Reportable Rouleaux Not Reportable Hemoglobin C Crystals Not Reportable Schistocytes Not Reportable Malaria parasites Not Reportable [place] Bodies Not Reportable Hem Pathologist Commnt No Sodium Potassium Chloride Carbon Dioxide Anion Gap BUN Creatinine Estimated GFR BUN/Creatinine Ratio Glucose Calcium Total Bilirubin Direct Bilirubin Indirect Bilirubin AST ALT Alkaline Phosphatase Total Creatine Kinase 930 H 975 H CK-MB (CK-2) 5.9 H 5.7 H CK-MB (CK-2) Rel Index 0.6 0.5 Troponin T < 0.010 < 0.010 Total Protein Albumin Albumin/Globulin Ratio Lipase Urine Color Urine Turbidity Urine pH Ur Specific [place] Urine Protein Urine Glucose (UA) Urine Ketones Urine Blood Urine Nitrite Urine Bilirubin Urine Ictotest Urine Urobilinogen Ur Leukocyte Esterase Urine WBC (Auto) Urine RBC (Auto) U Epithel Cells (Auto) Urine Mucus Urine Yeast (Budding) 10/24/16 10/24/16 06:39 06:39 WBC RBC Hgb Hct MCV MCH MCHC RDW Plt Count [place] % (Auto) Add Manual Diff Total Counted Seg Neutrophils % Seg Neuts % (Manual) Band Neutrophils % Lymphocytes % (Manual) Reactive Lymphs % (Man) Monocytes % (Manual) Eosinophils % (Manual) Basophils % (Manual) Metamyelocytes % Myelocytes % Promyelocytes % Blast Cells % Nucleated RBC % Seg Neutrophils # Man Band Neutrophils # Lymphocytes # (Manual) Abs React Lymphs (Man) Monocytes # (Manual) Eosinophils # (Manual) Basophils # (Manual) Metamyelocytes # Myelocytes # Promyelocytes # Blast Cells # WBC Morphology Hypersegmented Neuts Hyposegmented Neuts Hypogranular Neuts Smudge Cells Toxic Granulation Toxic Vacuolation Dohle Bodies Pelger-Huet Anomaly Jacob Rods Platelet Estimate Clumped Platelets Plt Clumps, EDTA Large Platelets Giant Platelets Platelet Satelliting Plt Morphology Comment RBC Morphology Dimorphic RBCs Polychromasia Hypochromasia Poikilocytosis Anisocytosis Microcytosis Macrocytosis Spherocytes Pappenheimer Bodies Sickle Cells Target Cells Tear Drop Cells Ovalocytes Helmet Cells Mantilla-[place] Bodies [place] Rings [place] Cells Bite Cells Crenated Cell Elliptocytes Acanthocytes (Spur) Rouleaux Hemoglobin C Crystals Schistocytes Malaria parasites [place] Bodies Hem Pathologist Commnt Sodium 126 L Potassium 3.3 L Chloride 93.5 L Carbon Dioxide 17 L Anion Gap 19 BUN 5 L Creatinine 0.6 L Estimated GFR > 60 BUN/Creatinine Ratio 8.33 Glucose 134 H Calcium 7.3 L Total Bilirubin 8.0 H Direct Bilirubin 5.5 H Indirect Bilirubin 2.5 AST 331 H ALT 130 H Alkaline Phosphatase 265 H Total Creatine Kinase CK-MB (CK-2) CK-MB (CK-2) Rel Index Troponin T Total Protein 5.9 L Albumin 2.5 L Albumin/Globulin Ratio 0.7 Lipase Urine Color Urine Turbidity Urine pH Ur Specific [place] Urine Protein Urine Glucose (UA) Urine Ketones Urine Blood Urine Nitrite Urine Bilirubin Urine Ictotest Urine Urobilinogen Ur Leukocyte Esterase Urine WBC (Auto) Urine RBC (Auto) U Epithel Cells (Auto) Urine Mucus Urine Yeast (Budding) Assessment and Plan 1. BRBPR -H/H stable, mild decrease overnight likely 2/2 dilution with IVF. Continue to monitor H/H. Hold blood thinning meds. Patient request workup as outpatient if possible. No bleeding since yesterday. 2. Elevated LFTS -? ETOH use vs Fatty liver. CT significant for fatty liver. No nodularity noted. No convincing definite evidence of cirrhosis at this time. (platelet count WNL on admission, INR only mildly elevated. Albumin decreased- can also be with ETOH abuse) -DF <32, no steroid therapy needed -Check Hepatitis panel -Patient denies Tylenol use. -LFTS are now improving, continue to trend -CT shows no acute process with biliary system. Check GB US -Patient denies abdominal pain or N/V. 3. CP/ SOB -For Stress test this am, further recommendations pending results.
[2016-10-24] MEDS ORDERED: LEXISCAN IV ONE ×2 (09:56→10:01)
[2016-10-24] MEDS ORDERED: PROTONIX IV SCH (10:00)
--- NOTE | 2016-10-24 11:20 | Progress Note ---
Assessment and Plan Assessment and plan: 1. Chest pain. Patient will be placed on chest pain pathway and follow-up stress thallium in the morning. CT of the chest is pending. Continue to trend cardiac enzymes. 2. Hematochezia. GI following. Patient with no active bleeding. Continue to monitor H&H. Patient may have a colonoscopy done as an outpatient. 3. EtOH abuse. Cont. CIWA protocol. 4. Elevated LFTs. Improving. Etiology likely secondary to EtOH use. CT scan significant for fatty liver. Check hepatitis panel and gallbladder ultrasound. 5. Elevated d-dimer. CTA of the chest no evidence of PE. History Interval history: No new complaints Hospitalist Physical - Constitutional Vitals: Temp Pulse Resp BP Pulse Ox 99.4 F 123 H 18 106/75 97 10/24/16 08:00 10/24/16 10:13 10/24/16 08:00 10/24/16 10:13 10/24/16 08:00 General appearance: Present: no acute distress, well-nourished - EENT Eyes: Present: PERRL, EOM intact ENT: hearing intact, clear oral mucosa, dentition normal - Neck Neck: Present: supple, normal ROM - Respiratory Respiratory effort: normal Respiratory: bilateral: CTA - Cardiovascular Rhythm: regular Heart Sounds: Present: S1 & S2. Absent: gallop, rub - Extremities Extremities: no ischemia, No edema, Full ROM - Abdominal General gastrointestinal: soft, non-tender, non-distended, normal bowel sounds - Integumentary Integumentary: Present: clear, warm, dry - Neurologic Neurologic: CNII-XII intact, moves all extremities Results - Labs CBC & Chem 7: 10/24/16 06:39 10/24/16 06:39 Labs: Laboratory Last Values WBC 8.7 K/mm3 (4.5-11.0) 10/24/16 06:39 RBC 3.43 M/mm3 (3.65-5.03) L 10/24/16 06:39 Hgb 10.8 gm/dl (11.8-15.2) L 10/24/16 06:39 Hct 31.2 % (35.5-45.6) L 10/24/16 06:39 MCV 91 fl (84-94) 10/24/16 06:39 MCH 31 pg (28-32) 10/24/16 06:39 MCHC 35 % (32-34) H 10/24/16 06:39 RDW 19.6 % (13.2-15.2) H 10/24/16 06:39 Plt Count 121 K/mm3 (140-440) L 10/24/16 06:39 Lymph % (Auto) Coal Handler 10/23/16 08:40 [place] % (Auto) Coal Handler 10/24/16 06:39 Lymph # [place] Handler 10/23/16 08:40 Add Manual Diff Complete 10/24/16 06:39 Total Counted 100 10/24/16 06:39 Seg Neutrophils % [place] Handler 10/24/16 06:39 Seg Neuts % (Manual) 74.0 % (40.0-70.0) H 10/24/16 06:39 Band Neutrophils % 0 % 10/24/16 06:39 Lymphocytes % (Manual) 13.0 % (13.4-35.0) L 10/24/16 06:39 Reactive Lymphs % (Man) 0 % 10/24/16 06:39 Monocytes % (Manual) 8.0 % (0.0-7.3) H 10/24/16 06:39 Eosinophils % (Manual) 5.0 % (0.0-4.3) H 10/24/16 06:39 Basophils % (Manual) 0 % (0.0-1.8) 10/24/16 06:39 Metamyelocytes % 0 % 10/24/16 06:39 Myelocytes % 0 % 10/24/16 06:39 Promyelocytes % 0 % 10/24/16 06:39 Blast Cells % 0 % 10/24/16 06:39 Nucleated RBC % Not Reportable 10/24/16 06:39 Seg Neutrophils # Man 6.4 K/mm3 (1.8-7.7) 10/24/16 06:39 Band Neutrophils # 0.0 K/mm3 10/24/16 06:39 Lymphocytes # (Manual) 1.1 K/mm3 (1.2-5.4) L 10/24/16 06:39 Abs React Lymphs (Man) 0.0 K/mm3 10/24/16 06:39 Monocytes # (Manual) 0.7 K/mm3 (0.0-0.8) 10/24/16 06:39 Eosinophils # (Manual) 0.4 K/mm3 (0.0-0.4) 10/24/16 06:39 Basophils # (Manual) 0.0 K/mm3 (0.0-0.1) 10/24/16 06:39 Metamyelocytes # 0.0 K/mm3 10/24/16 06:39 Myelocytes # 0.0 K/mm3 10/24/16 06:39 Promyelocytes # 0.0 K/mm3 10/24/16 06:39 Blast Cells # 0.0 K/mm3 10/24/16 06:39 WBC Morphology Not Reportable 10/24/16 06:39 Hypersegmented Neuts Not Reportable 10/24/16 06:39 Hyposegmented Neuts Not Reportable 10/24/16 06:39 Hypogranular Neuts Not Reportable 10/24/16 06:39 Smudge Cells Not Reportable 10/24/16 06:39 Toxic Granulation Not Reportable 10/24/16 06:39 Toxic Vacuolation Not Reportable 10/24/16 06:39 Dohle Bodies Not Reportable 10/24/16 06:39 Pelger-Huet Anomaly Not Reportable 10/24/16 06:39 Jacob Rods Not Reportable 10/24/16 06:39 Platelet Estimate Not Reportable 10/24/16 06:39 Clumped Platelets Not Reportable 10/24/16 06:39 Plt Clumps, EDTA Not Reportable 10/24/16 06:39 Large Platelets Not Reportable 10/24/16 06:39 Giant Platelets Not Reportable 10/24/16 06:39 Platelet Satelliting Not Reportable 10/24/16 06:39 Plt Morphology Comment Not Reportable 10/24/16 06:39 RBC Morphology Not Reportable 10/24/16 06:39 Dimorphic RBCs Not Reportable 10/24/16 06:39 Polychromasia Not Reportable 10/24/16 06:39 Hypochromasia Not Reportable 10/24/16 06:39 Poikilocytosis 1+ 10/24/16 06:39 Anisocytosis 2+ 10/24/16 06:39 Microcytosis Not Reportable 10/24/16 06:39 Macrocytosis Not Reportable 10/24/16 06:39 Spherocytes Not Reportable 10/24/16 06:39 Pappenheimer Bodies Not Reportable 10/24/16 06:39 Sickle Cells Not Reportable 10/24/16 06:39 Target Cells Not Reportable 10/24/16 06:39 Tear Drop Cells Not Reportable 10/24/16 06:39 Ovalocytes Not Reportable 10/24/16 06:39 Helmet Cells Not Reportable 10/24/16 06:39 Mantilla-[place] Bodies Not Reportable 10/24/16 06:39 [place] Rings Not Reportable 10/24/16 06:39 [place] Cells Not Reportable 10/24/16 06:39 Bite Cells Not Reportable 10/24/16 06:39 Crenated Cell Not Reportable 10/24/16 06:39 Elliptocytes Not Reportable 10/24/16 06:39 Acanthocytes (Spur) Not Reportable 10/24/16 06:39 Rouleaux Not Reportable 10/24/16 06:39 Hemoglobin C Crystals Not Reportable 10/24/16 06:39 Schistocytes Not Reportable 10/24/16 06:39 Malaria parasites Not Reportable 10/24/16 06:39 [place] Bodies Not Reportable 10/24/16 06:39 Hem Pathologist Commnt No 10/24/16 06:39 PT 14.9 Sec. (12.2-14.9) 10/23/16 09:50 INR 1.18 (0.87-1.13) H 10/23/16 09:50 APTT 38.7 Sec. (24.2-36.6) H 10/23/16 09:50 D-Dimer 540.22 ng/mlDDU (0-234) H 10/23/16 09:50 VBG pH 7.429 (7.320-7.420) H 10/23/16 09:50 Sodium 126 mmol/L (137-145) L 10/24/16 06:39 Potassium 3.3 mmol/L (3.6-5.0) L 10/24/16 06:39 Chloride 93.5 mmol/L (98-107) L 10/24/16 06:39 Carbon Dioxide 17 mmol/L (22-30) L 10/24/16 06:39 Anion Gap 19 mmol/L 10/24/16 06:39 BUN 5 mg/dL (9-20) L 10/24/16 06:39 Creatinine 0.6 mg/dL (0.8-1.5) L 10/24/16 06:39 Estimated GFR > 60 ml/min 10/24/16 06:39 BUN/Creatinine Ratio 8.33 % 10/24/16 06:39 Glucose 134 mg/dL (75-100) H 10/24/16 06:39 POC Glucose 154 (70-105) H 10/23/16 09:23 Lactic Acid 1.8 mmol/L (0.7-2.0) 10/24/16 08:41 Calcium 7.3 mg/dL (8.4-10.2) L 10/24/16 06:39 Magnesium 1.4 mg/dL (1.7-2.3) L 10/23/16 09:50 Total Bilirubin 8.0 mg/dL (0.1-1.2) H 10/24/16 06:39 Direct Bilirubin 5.5 mg/dL (0-0.2) H 10/24/16 06:39 Indirect Bilirubin 2.5 mg/dL 10/24/16 06:39 AST 331 units/L (5-40) H 10/24/16 06:39 ALT 130 units/L (7-56) H 10/24/16 06:39 Alkaline Phosphatase 265 units/L (35-129) H 10/24/16 06:39 Total Creatine Kinase 981 units/L (55-170) H 10/24/16 08:41 CK-MB (CK-2) 5.7 ng/mL (0.0-4.0) H 10/23/16 16:36 CK-MB (CK-2) Rel Index 0.5 (0-4) 10/23/16 16:36 Troponin T < 0.010 ng/mL (0.00-0.029) 10/23/16 16:36 Total Protein 5.9 g/dL (6.3-8.2) L 10/24/16 06:39 Albumin 2.5 g/dL (3.9-5) L 10/24/16 06:39 Albumin/Globulin Ratio 0.7 % 10/24/16 06:39 Lipase 56 units/L (13-60) 10/23/16 11:37 Urine Color Hien (Yellow) 10/23/16 12:37 Urine Turbidity Clear (Clear) 10/23/16 12:37 Urine pH 6.0 (5.0-7.0) 10/23/16 12:37 Ur Specific [place] 1.040 (1.003-1.030) H 10/23/16 12:37 Urine Protein 30 mg/dl mg/dL (Negative) 10/23/16 12:37 Urine Glucose (UA) >=500 mg/dL (Negative) 10/23/16 12:37 Urine Ketones Neg mg/dL (Negative) 10/23/16 12:37 Urine Blood Lg (Negative) 10/23/16 12:37 Urine Nitrite Neg (Negative) 10/23/16 12:37 Urine Bilirubin Mod (Negative) 10/23/16 12:37 Urine Ictotest Positive (Negative) 10/23/16 12:37 Urine Urobilinogen 2.0 mg/dL (<2.0) 10/23/16 12:37 Ur Leukocyte Esterase Lg (Negative) 10/23/16 12:37 Urine WBC (Auto) 45.0 /HPF (0.0-6.0) H 10/23/16 12:37 Urine RBC (Auto) 24.0 /HPF (0.0-6.0) 10/23/16 12:37 U Epithel Cells (Auto) 1.0 /HPF (0-13.0) 10/23/16 12:37 Urine Mucus 1+ /HPF 10/23/16 12:37 Urine Yeast (Budding) Few /HPF 10/23/16 12:37 Salicylates < 0.3 mg/dL (2.8-20.0) L 10/23/16 09:50
--- NOTE | 2016-10-24 11:57 | Ultrasound Report ---
RIGHT UPPER QUADRANT ULTRASOUND: HISTORY: Elevated liver function tests. Technique: Transabdominal ultrasound imaging with Doppler interrogation. FINDINGS: There is moderate to severe diffuse fatty infiltration of the liver. No obvious liver lesion. No perihepatic ascites. A mild degree of sludge is identified within the gallbladder. No shadowing gallstones, wall thickening or surrounding fluid. The CBD measures 5 mm. The pancreas is obscured by bowel gas. The right kidney is atrophic with diffuse cortical thinning and scattered renal stones. Mild pyelocaliectasis in the right kidney is suspected. Please refer to the CT abdomen pelvis performed 10/23/16. IMPRESSION: Hepatic steatosis. Sludge in the gallbladder. Atrophic right kidney with calcifications and mild pyelocaliectasis.
--- NOTE | 2016-10-24 23:03 | Treadmill Report ---
INDICATION: Chest pain. ORDERING PHYSICIAN: Devan Callejas MD FINDINGS: There is no scintigraphic evidence of myocardial ischemia. There is evidence of decreased uptake in the inferior wall noted on both rest and stress imaging. The left ventricle is normal in size. There is normal wall motion. The left ventricular ejection fraction is measured at 53%. CONCLUSION: 1. No scintigraphic evidence of myocardial ischemia. 2. Normal left ventricular size with an ejection fraction measured at 53%. 3. This is a low risk myocardial perfusion scan associated with less than 1% cardiovascular mortality in the next 1 year. JOB# [id number] FRANKO/DEBBIE
[2016-10-25 09:10] LABS: Alanine Aminotransferase 101 units/L (7-56); Albumin 2.4 g/dL (3.9-5); Albumin/Globulin Ratio 0.8 %; Alkaline Phosphatase 250 units/L (35-129); Anion Gap 17 mmol/L; Bilirubin,Total 6.7 mg/dL (0.1-1.2); Blood Urea Nitrogen 4 mg/dL (9-20); Calcium 7.1 mg/dL (8.4-10.2); Carbon Dioxide 20 mmol/L (22-30); Chloride 96.3 mmol/L (98-107); Glucose 144 mg/dL (75-100); Sodium 130 mmol/L (137-145); Total Protein 5.3 g/dL (6.3-8.2)
[2016-10-25 09:12] LABS: Potassium 2.8 mmol/L (3.6-5.0)
--- NOTE | 2016-10-25 09:29 | Gastroenterology Progress Note ---
Assessment and Plan 1. BRBPR -CBC pending -pt denies any rectal bleeding -pt request workup as outpatient, this is reasonable 2. Elevated LFTS -? ETOH use vs Fatty liver. CT significant for fatty liver. No nodularity noted. No convincing definite evidence of cirrhosis at this time. (platelet count WNL on admission, INR only mildly elevated. Albumin decreased- can also be with ETOH abuse) -DF <32, no steroid therapy needed -Hepatitis panel negative -Patient denies Tylenol use. -CMP pending -CT shows no acute process with biliary system. GB u/s with no acute process, biliary sludge noted -Patient denies abdominal pain or N/V. 3. CP/ SOB -per primary If LFTs and H/H are stable okay to d/c per GI standpoint. Pt given office information and discussed f/u in 3 wks Subjective Date of service: 10/25/16 Interval history: Pt without distress sitting on the side of bed watching tv denies pain or rectal bleeding Objective - Constitutional Vitals: Temp Pulse Resp BP Pulse Ox 99.9 F H 103 H 20 116/74 96 10/25/16 07:57 10/25/16 07:57 10/25/16 07:57 10/25/16 07:57 10/25/16 07:57 General appearance: no acute distress - EENT ENT: hearing intact - Cardiovascular Rhythm: regular Heart Sounds: Present: S1 & S2 - Gastrointestinal General gastrointestinal: Present: soft, non-tender, distended - Integumentary Integumentary: Present: warm, dry - Neurologic Neurological: alert and oriented x3 - Psychiatric Psychiatric: appropriate mood/affect, cooperative - Labs CBC & Chem 7: 10/24/16 06:39 10/25/16 08:29 Labs: Laboratory Results - last 24 hr 10/24/16 10/24/16 10/24/16 08:41 08:41 09:28 Sodium Potassium Chloride Carbon Dioxide Anion Gap BUN Creatinine Estimated GFR BUN/Creatinine Ratio Glucose Lactic Acid 1.8 Calcium Total Bilirubin AST ALT Alkaline Phosphatase Total Creatine Kinase 981 H Total Protein Albumin Albumin/Globulin Ratio Hepatitis A IgM Ab Non-reactive Hep Bs Antigen Non-reactive Hep B Core IgM Ab Non-reactive Hepatitis C Antibody Non-reactive 10/25/16 08:29 Sodium 130 L Potassium 2.8 L* Chloride 96.3 L Carbon Dioxide 20 L Anion Gap 17 BUN 4 L Creatinine 0.8 Estimated GFR > 60 BUN/Creatinine Ratio 5.00 Glucose 144 H Lactic Acid Calcium 7.1 L Total Bilirubin 6.7 H AST 211 H ALT 101 H Alkaline Phosphatase 250 H Total Creatine Kinase Total Protein 5.3 L Albumin 2.4 L Albumin/Globulin Ratio 0.8 Hepatitis A IgM Ab Hep Bs Antigen Hep B Core IgM Ab Hepatitis C Antibody
[2016-10-25 10:10] LABS: Hematocrit 26.6 % (35.5-45.6); Mean Corpuscular HGB Conc 34 % (32-34); Mean Corpuscular Hemoglobin 31 pg (28-32); Mean Corpuscular Volume 92 fl (84-94); Platelet Count 105 K/mm3 (140-440); Red Cell Distribution Width 19.1 % (13.2-15.2); White Blood Count 6.7 K/mm3 (4.5-11.0)
[2016-10-25] MEDS ORDERED: K-DUR PO ONE (10:42)
[2016-10-25] MEDS ORDERED: MAGNESIUM SULFATE IV ONE (10:43)
--- NOTE | 2016-10-25 10:46 | Discharge Summary ---
Providers - Providers Date of Admission: 10/23/16 11:22 Date of discharge: 10/25/16 Attending physician: ASHLEY ROE MD Primary care physician: [employer] Hospitalization Reason for admission: chest pain Condition: Stable Hospital course: Patient is a 51-year-old male presents to the emergency department with complaints of left-sided chest pain described as a tightness. Patient also reports associated shortness of breath, nausea and vomiting. Patient states that his vomiting has occurred a few times of gastric contents. He denies any diaphoresis. Patient also reports rectal bleeding that initially was bright red blood per rectum and transition to maroon stools. Stool study came back positive GI was consulted and they anticipated a recommended an outpatient workup for this. Patient during hospitalization was noted to have elevated LFTs which and she began to came likely secondary to alcoholic liver disease. There was no need for steroids at this point as the patient is DF was less than 32. Hepatitis panel test was negative patient did have intermittent low-grade temperature but with no evidence of sepsis and infection. Have a positive UA but denied any symptoms including dysuria for increased frequency and others period. Imaging studies were concerning for starghon calculus with mild obstruction for which I discussed and started the patient on ciprofloxacin prior to discharge. He is clinically stable at this point. We also did find that he does consumes multiple alcohols daily he has tried to quit in the past. Physical exam that reveals some hemorrhoids that he says he's had intermittent bright red blood per rectum in the past when he wipes. Again I did discuss the need to follow with GI for outpatient evaluation. I have also recommended an outpatient nephrology evaluation. Although he had an elevated d- dimer there was no evidence of pulmonary embolism again strongly encouraged enrollment in a detox program. Patient verbalized understanding. 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 * Atypical chest pain likely secondary to costochondritis * Urinary tract infection * starghone calculus * Atrophic right kidney * Moderate fatty liver disease * Moderate protein calorie about nutrition * Morbid obesity BMI 41 * Alcohol abuse * Hyponatremia * Thrombocytopenia Disposition: DISCHARGED TO HOME OR SELFCARE Time spent for discharge: 35 MINS Core Measure Documentation - Palliative Care Palliative Care/ Comfort Measures: Not Applicable - Core Measures Any of the following diagnoses?: none - VTE Discharge Requirements Deep Vein Thrombosis/Pulmonary Embolism Present on Admission: No Exam - Physical Exam Narrative exam: VITAL SIGNS: Reviewed. GENERAL: The patient appeared well nourished and normally developed obese. Vital signs as documented. HEAD: No signs of head trauma. EYES: Pupils are equal. Extraocular motions intact. EARS: Hearing grossly intact. MOUTH: Oropharynx is normal. NECK: No adenopathy, no JVD. CHEST: Chest with clear breath sounds bilaterally. No wheezes, rales, or rhonchi. CARDIAC: Regular rate and rhythm. S1 and S2, without murmurs, gallops, or rubs. VASCULAR: No Edema. Peripheral pulses normal and equal in all extremities. ABDOMEN: Soft, without detectable tenderness. No sign of distention. No rebound or guarding, and no masses palpated. Bowel Sounds normal. Nonbleeding external hemorrhoid MUSCULOSKELETAL: Good range of motion of all major joints. Extremities without clubbing, cyanosis or edema. NEUROLOGIC EXAM: Alert and oriented x 3. No focal sensory or strength deficits. Speech normal. Follows commands. PSYCHIATRIC: Mood normal. SKIN: No rash or lesions. - Constitutional Vitals: Temp Pulse Resp BP Pulse Ox 99.9 F H 103 H 20 116/74 96 10/25/16 07:57 10/25/16 07:57 10/25/16 07:57 10/25/16 07:57 10/25/16 07:57 Plan Activity: advance as tolerated, fall precautions Diet: low fat Special Instructions: record daily BP diary Additional Instructions: MUST QUIT ALCOHOL INTAKE. must follow with consultants. Must avoid tylenol and NSAIDS until seen by GI Follow up with: RIGOBERTO DELGADO MD [Staff Physician] - 14 Days PRIMARY MD [place] [Primary Care Provider] - 7 Days JASON CLARK MD [Staff Physician] - 7 Days Prescriptions: Ciprofloxacin HCl [Ciprofloxacin TAB] 500 mg PO BID #10 tablet
[2016-10-25] MEDS ORDERED: KCL 10MEQ/100ML 10 MEQ/100 ML BAG IV SCH (11:00)
[2016-10-25] MEDS ORDERED: MAGNESIUM SULFATE 2GM/50ML 2 GM/50 ML BAG IV ONE (12:00)
[2016-10-25] MEDS ORDERED: PROTONIX PO SCH (13:00)
[2016-10-25] MEDS ORDERED: MOTRIN PO PRN (15:58)
[2016-10-25 17:58] VITALS: BP 148/79
[2016-10-25] MEDS ORDERED: LEVAQUIN PO SCH (18:30)
== END 2016-10-25 22:08 | disposition home or self-care (01) | DRG 206 ==
LOC: ED 08:13 → 4A 11:22
PROVIDERS: ADMIT Hospitalist; ATTEND Internal Medicine
DX: M94.0 Chondrocostal junction syndrome [Tietze] (principal); F10.239 Alcohol dependence with withdrawal, unspecified; E87.1 Hypo-osmolality and hyponatremia; K62.5 Hemorrhage of anus and rectum; N39.0 Urinary tract infection, site not specified; E44.0 Moderate protein-calorie malnutrition; Z68.41 Body mass index [BMI] 40.0-44.9, adult; I10 Essential (primary) hypertension; Z88.6 Allergy status to analgesic agent; E83.42 Hypomagnesemia; N20.0 Calculus of kidney; N26.1 Atrophy of kidney (terminal); K76.0 Fatty (change of) liver, not elsewhere classified; D69.6 Thrombocytopenia, unspecified; K64.9 Unspecified hemorrhoids; D50.9 Iron deficiency anemia, unspecified; K70.9 Alcoholic liver disease, unspecified; D75.9 Disease of blood and blood-forming organs, unspecified
CPT/HCPCS: 36415; 71020; 71275; 74177; 76705; 78452; 80048; 80053; 80074; 80320; 81001; 82140; 82271; 82550; 82553; 82805; 82962; 83690; 83735; 84484; 85007; 85025; 85027; 85379; 85610; 85730; 93005; 93010; 93017; 93306; 96361; 96365; 96375; A9502; C9113; G0480; J2060; J2785; J3360; J3475; J3480; J7030; Q9967

== ENCOUNTER 2019-06-01 12:04 | Outpatient (CLI) | payer BC ==
[2019-06-01 12:35] LABS: Hematocrit 46.9 % (35.5-45.6); Hemoglobin 15.2 gm/dl (11.8-15.2); Mean Corpuscular HGB Conc 32 % (32-34); Mean Corpuscular Volume 95 fl (84-94); Platelet Count 182 K/mm3 (140-440); Red Blood Count 4.94 M/mm3 (3.65-5.03); Red Cell Distribution Width 14.5 % (13.2-15.2)
[2019-06-01 13:00] LABS: Alanine Aminotransferase 65 units/L (7-56); BUN/Creatinine Ratio 16; Blood Urea Nitrogen 11 mg/dL (9-20); Calcium 8.9 mg/dL (8.4-10.2); Hemolysis Index 8
[2019-06-01 15:16] LABS: Bilirubin,Urine Negative (Negative); Blood,Urine SM (Negative); Color,Urine Yellow (Yellow); Urobilinogen,Urine < 0.2 mg/dL (<2.0)
[2019-06-01 15:21] LABS: Creatinine,Urine 183.2 mg/dL (0.1-20.0)
[2019-06-01 17:19] LABS: Basophils % (Manual) 0 % (0.0-1.8); Platelet Estimate Consistent w Auto; RBC Morphology Normal; Total Cells Counted 100
[2019-06-04 15:54] LABS: Protein/Creatinine Ratio,Urine 0.17
== END 2019-06-01 12:05 | disposition home or self-care (01) ==
LOC: LAB 12:04
PROVIDERS: ATTEND Hospitalist
DX: I12.9 Hypertensive chronic kidney disease with stage 1 through stage 4 chronic kidney disease, or unspecified chronic kidney disease (principal); N18.2 Chronic kidney disease, stage 2 (mild); Z72.0 Tobacco use
CPT/HCPCS: 36415; 80053; 81001; 82570; 84156; 85007; 85025